=== PATIENT | male | born 1970 | race Caucasian/White ===

== ENCOUNTER 2020-11-07 09:47 | Emergency (ER) | payer OTHER, SELFPAY ==
[2020-11-07 10:04] VITALS: BP 145/87; PULSE 70; RESP 12; TEMP 37; O2SAT 99
--- NOTE | 2020-11-07 10:20 | ED.EYEPROB ---
HPI - Eye Problem General Chief complaint: Eye Problems Stated complaint: eye irritation Time Seen by Provider: 11/07/20 10:15 Source: patient and RN notes reviewed Mode of arrival: ambulatory Limitations: no limitations History of Present Illness HPI Narrative: 50-year-old male presents to the emergency room with left eye irritation and swelling that started when he woke up this morning. Patient is a contact lens wear. States he took it out last night his eyes were fine. Denies any blurry vision or change in vision. Denies any trauma to the eye. No drainage noted. Related Data Home Medications Medication Instructions Recorded Confirmed atorvastatin 11/07/20 Allergies Allergy/AdvReac Type Severity Reaction Status Date / Time No Known Allergies Allergy Verified 11/07/20 10:00 Review of Systems Review of Systems: Narrative: CONSTITUTIONAL: Denies fever, chills, or sweats. EYES: Denies visual changes, redness, or discharge. Left upper eyelid swelling ENT: Denies rhinorrhea, congestion, sore throat, or otalgia. CARDIOVASCULAR: Denies chest pain, palpitations, or edema. RESPIRATORY: Denies cough or dyspnea. SKIN: Denies rash or itching. MUSCULOSKELETAL: Denies back pain, joint pain, or myalgia. NEUROLOGIC: Denies headache, numbness, or weakness. PSYCHIATRIC: Denies anxiety or depression. All other systems reviewed are negative, except as documented in HPI. PMFSH Social History Social History Smoking status: Never smoker Comments At the time of my signature, I reviewed and agree with the nursing past medical, surgical, social, and family history. There is no relevant family history pertinent to the patient complaint. Exam Narrative: Exam Narrative: GENERAL: This is a well-nourished, well-developed patient, in no apparent distress. HEAD: normocephalic, atraumatic. EYES: PERRL. Sclera clear/white. Vision is grossly intact. Injection with increased redness noted to the left conjunctive a with swelling of the upper eyelid. Eyelid inverted no foreign body or stye noted EARS: External ears normal, auditory canals clear and without drainage, TMs normal without perforation. Hearing grossly intact. NOSE: External nose normal NECK: Neck supple, non-tender without lymphadenopathy, masses or thyromegaly. CARDIOVASCULAR: Regular rate and rhythm without murmurs, gallops, or rubs. RESPIRATORY: Clear to auscultation. Breath sounds equal bilaterally. No wheezes, rales, or rhonchi. NEURO: awake, alert, and oriented to person, place and time. There were no obvious focal neurologic abnormalities. EXTREMITIES: No joint tenderness, effusion, or edema noted. BACK: Nontender without deformity. Course Vital Signs Vital signs: Vital Signs Temperature 98.6 F 11/07/20 10:04 Pulse Rate 70 11/07/20 10:04 Respiratory Rate 12 11/07/20 10:04 Blood Pressure 145/87 H 11/07/20 10:04 Pulse Oximetry 99 11/07/20 10:04 Temperature 98.6 F 11/07/20 10:04 Pulse Rate 70 11/07/20 10:04 Respiratory Rate 12 11/07/20 10:04 Blood Pressure 145/87 H 11/07/20 10:04 Pulse Oximetry 99 11/07/20 10:04 reviewed MDM - Eye Problem Differential Diagnosis Differential diagnosis: Likely corneal abrasion and conjunctivitis Critical Care Time Critical Care Time Critical Care Time: No Discharge Plan Discharge Clinical Impression: Bacterial conjunctivitis Patient Disposition: Home, Self-Care Condition: Stable Instructions: Antibiotic Form, Conjunctivitis (ED) Additional Instructions: Do not wear contact lenses for 5 days If symptoms get worse follow-up with your eye doctor Apply cool compresses as needed Patient Language: Vincentian Prescriptions: New ciprofloxacin HCl 0.3 % drops See Rx Instructions .ROUTE .COMPLEX Qty: 2.5 RF: 0 No Action atorvastatin 20 mg tablet RF: 0 Follow-up/Referrals: Erna,Tino Manley MD [Primary Care Pr
== END 2020-11-07 13:11 | disposition home or self-care (01) ==
PROVIDERS: Emergency Provider Nurse Practitioner; PCP Internal Medicine
DX: H10.9 Unspecified conjunctivitis (principal); E78.00 Pure hypercholesterolemia, unspecified
CPT/HCPCS: 99203; G0463

== ENCOUNTER 2021-11-24 00:15 | Day surgery (SDC) | payer OTHER, SELFPAY ==
[2021-11-12 10:42] VITALS: BMI 22.8
[2021-11-24 06:28] VITALS: BP 124/83; PULSE 74; RESP 18; TEMP 36.8; O2SAT 100
[2021-11-24] MEDS: LACTATED RINGERS 1,000 ML 150 ML IV CONT (06:36)
--- NOTE | 2021-11-24 06:49 | P.PNAN_ITS ---
Anes - Initial Pre Proc Eval Procedure: Operation Date: 11/24/21 07:30 Proposed Procedures p Screening Colonoscopy - River Vo MD Date/Time: 11/24/21 06:49 Surgeon: River Vo MD Pre Op Diagnosis: neoplasm screening Patient Data Age: 51 Gender: M Height: 1.7 m Weight: 68.9 kg Last Vital Signs Temp 36.8 C 11/24/21 06:28 Pulse 74 11/24/21 06:28 Resp 18 11/24/21 06:28 BP 124/83 11/24/21 06:28 Pulse Ox 100 11/24/21 06:28 Allergies Allergy/AdvReac Type Severity Reaction Status Date / Time No Known Allergies Allergy Verified 11/24/21 06:27 Home Medications Medication Instructions Recorded Confirmed Type finasteride 1 mg tablet 1 mg PO DAILY 08/29/21 11/12/21 History atorvastatin 20 mg tablet 20 mg PO DAILY #90 tablet 09/08/21 11/12/21 Rx cetirizine [Zyrtec] 10 mg PO DAILY PRN 11/12/21 11/12/21 History Patient hx anesthesia problems: none Family hx anesthesia problems: none Results Review: All pre-operative results and documents have been reviewed as part of the pre-operative evaluation. 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 Informed Consent: The patient's anesthetic plan and its attendant risks and benefits were discussed with the patient/family/POA. Questions were solicited and answers provided to the satisfaction of the patient/family/POA.
--- NOTE | 2021-11-24 07:13 | PM.HPGS ---
History of Present Illness History of Present Illness Consent: Risks, benefits, and alternatives have been discussed and questions answered. Patient agrees to proceed with procedure. Chief complaint: neoplasm screening Narrative: Kirby Gillespie is a 51 year old male here for first screening colonoscopy Review of Systems Constitutional: Constitutional: Denies headache(s) and Denies weakness Eyes: Eyes: Denies blurry vision ENT: Reports Normal hearing present, Denies headache(s) and Denies neck pain Cardiovascular: Cardiovascular: Denies chest pain and Denies dyspnea Respiratory: Respiratory: Denies dyspnea Gastrointestinal: Gastrointestinal: Reports no additional gastrointestinal complaints Genitourinary: Genitourinary: Denies dysuria Musculoskeletal: Musculoskeletal: Denies neck pain Integumentary/Breasts: Skin/Breast: Denies dry skin Neurologic: Reports Normal hearing present, Denies headache(s) and Denies weakness Psychiatric: Psychiatric: Denies anxiety Endocrine: Endocrine: Denies change in body appearance Hematologic/Lymphatic: Hematologic/Lymphatic: Denies easy bleeding Allergic/Immunologic: Allergic/Immunologic: Denies urticaria PMF Past Medical History Medical History (Updated 11/24/21 @ 07:14 by River Vo MD) Colon cancer screening Hyperlipidemia Family History Family History Mother Diabetes mellitus Sibling Diabetes mellitus Hypertension Grandparent Diabetes mellitus Social History Social History Smoking status: Former smoker Tobacco type: cigarettes Alcohol intake: current Drinks per week: 5 Alcohol use details: Beer Substance use: current Substance use type: marijuana Living arrangements: with family 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 Gender identity (if verbalized by the patient): Male Spiritual care concerns: No Meds Home Medications and Allergies Home Medications Medication Instructions Recorded Confirmed Type finasteride 1 mg tablet 1 mg PO DAILY 08/29/21 11/12/21 History atorvastatin 20 mg tablet 20 mg PO DAILY #90 tablet 09/08/21 11/12/21 Rx cetirizine [Zyrtec] 10 mg PO DAILY PRN 11/12/21 11/12/21 History Allergies Allergy/AdvReac Type Severity Reaction Status Date / Time No Known Allergies Allergy Verified 11/24/21 06:27 Vital Signs Vital Signs - 24 hr 11/24/21 06:28 Temperature 98.2 F Pulse Rate 74 Respiratory Rate 18 Blood Pressure 124/83 Pulse Oximetry 100 Exam Const: General: comfortable and no acute distress HENMT: General nose exam: Normal nares present Eyes: General: appearance normal, both eyes and all related structures Neck: Neck: no JVD Resp: Auscultation: clear to auscultation bilaterally Cardio: Rate: regular rate Rhythm: regular rhythm GI: Inspection: non-distended GI Palp: Yes Soft to palpation Skin: General skin exam: normal color Neuro: General: gait normal Speech: normal speech Extrem: General: normal to inspection Psych: Mental Status: mental status grossly normal Assessment and Plan Assessment and plan (1) Colon cancer screening: Code(s): Z12.11 - Encounter for screening for malignant neoplasm of colon Status: Acute Assessment and Plan: colonoscopy
[2021-11-24 07:45] VITALS: BP 113/76; PULSE 75; RESP 17; O2SAT 98
[2021-11-24 07:55] VITALS: BP 114/81; PULSE 66; RESP 20; O2SAT 100
[2021-11-24 08:05] VITALS: BP 128/90; PULSE 58; RESP 17; O2SAT 100
== END 2021-11-24 08:20 | disposition home or self-care (01) ==
PROVIDERS: PCP Family Medicine; Visit Provider Internal Medicine Gastroenterology
PROC: 0DJD8ZZ Inspection of Lower Intestinal Tract, Via Natural or Artificial Opening Endoscopic (ICD-10-PCS; CPT 45378; principal; 2021-11-24 07:30)
DX: Z12.11 Encounter for screening for malignant neoplasm of colon (principal); D12.3 Benign neoplasm of transverse colon; D12.4 Benign neoplasm of descending colon; K63.5 Polyp of colon; K57.30 Diverticulosis of large intestine without perforation or abscess without bleeding; K64.8 Other hemorrhoids; E78.5 Hyperlipidemia, unspecified; Z87.891 Personal history of nicotine dependence; F12.90 Cannabis use, unspecified, uncomplicated
CPT/HCPCS: 45385; 88305; J2704; J7120

== ENCOUNTER 2023-12-18 10:02 | Emergency (ER) | payer OTHER, SELFPAY ==
--- NOTE | ~2023-12-18 | XR_ITS ---
EXAMINATION: XR clavicle RT DATE: 12/18/2023 10:18 INDICATION: Right clavicle pain. Fall. TECHNIQUE: 2 views of right clavicle were obtained. COMPARISON: None. FINDINGS: There is a comminuted fracture involving the middle third of right clavicle. The main dista l fracture fragment demonstrates 2 shaft widths inferior displacement. Coracoclavicular interval is n ormal. Joint spaces are normal. IMPRESSION: 1. Comminuted fracture involving the middle third of right clavicle. Reviewed, dictated and finalized at location A.
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
[2023-12-18 10:10] VITALS: BP 143/74; PULSE 84; RESP 16; TEMP 37; O2SAT 98
[2023-12-18 10:13] VITALS: BP 143/74; PULSE 84; RESP 16; TEMP 37; O2SAT 98
== END 2023-12-18 10:49 | disposition home or self-care (01) ==
PROVIDERS: Emergency Provider Nurse Practitioner Family; PCP Family Medicine
DX: S42.021A Displaced fracture of shaft of right clavicle, initial encounter for closed fracture (principal); V18.4XXA Pedal cycle driver injured in noncollision transport accident in traffic accident, initial encounter; E78.5 Hyperlipidemia, unspecified; Z87.891 Personal history of nicotine dependence; F12.90 Cannabis use, unspecified, uncomplicated
CPT/HCPCS: 73000; 99213; A4565; G0463

== ENCOUNTER 2023-12-18 17:02 | Emergency (ER) | payer OTHER, SELFPAY ==
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
[2023-12-18 17:04] VITALS: BP 140/72; PULSE 86; RESP 18; TEMP 36.6; O2SAT 100
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
[2023-12-18] MEDS: LIDOCAINE 5% PATCH 1 PATCH TRANSDERM (18:03)
[2023-12-18] MEDS: ONDANSETRON INJ 4 MG/2 ML VIAL IV PUSH (18:03)
[2023-12-18 18:04] LABS: Basophils Percent Auto 0.1 % (0.2-1.2); Hematocrit 44.6 % (42.0-52.0); Hemoglobin 14.9 g/dL (14.0-18.0); Immature Granulocyte Absolute 0.09 K/mm3 (0.00-0.031); Immature Granulocyte Percent A 0.5 % (0-0.5); Lymphocytes Absolute Auto 0.91 K/mm3 (0.9-3.2); Lymphocytes Percent Auto 4.8 % (18.3-44.2); Mean Corpuscular HGB Conc 33.4 g/dl (32-36); Mean Corpuscular Hemoglobin 30.7 pg (26-34); Mean Platelet Volume 9.7 fl (7.4-10.4); Monocytes Absolute Auto 1.6 K/mm3 (0.1-0.6); Monocytes Percent Auto 8.4 % (2.6-8.5); Neutrophils Absolute Auto 16.4 K/mm3 (1.3-6.7); Neutrophils Percent Auto 86.2 % (45.5-73.1); Platelet Count Result 356 k/mm3 (150-375); Red Blood Count 4.85 M/mm3 (4.6-6.20); Red Cell Distribution Width 12.1 % (11.5-14.5)
[2023-12-18 18:15] LABS: Estimated CRCL calculation 74 ml/min; Estimated Glomerular Filt Rate > 60
[2023-12-18 18:16] LABS: Prothrombin Time 14.2 Seconds (11.1-14.7)
[2023-12-18 18:17] LABS: Partial Thromboplastin Time 25.3 Seconds (22.3-36.8)
[2023-12-18] MEDS: IBUPROFEN IV 400 MG in SODIUM CHLORIDE 0.9% IV 100 ML 200 MG IVPB (18:22)
[2023-12-18 18:23] LABS: Alanine Aminotransferase 198 U/L (6-50); Albumin Level 5.2 g/dL (3.5-5.1); Alkaline Phosphatase 67 U/L (38-126); Anion Gap 14 mmol/L (4-12); Aspartate Amino Transferase 126 U/L (17-59); Bilirubin,Total 1.2 mg/dL (0.2-1.3); Blood Urea Nitrogen 11 mg/dL (9-20); Carbon Dioxide 22 mmol/L (22-30); Chloride 103 mmol/L (98-107); Estimated CRCL calculation 74 ml/min; Estimated Glomerular Filt Rate > 60; Glucose 196 mg/dL (65-110); Potassium 4.2 mmol/L (3.4-5.0); Sodium 139 mmol/L (137-145)
--- NOTE | 2023-12-18 18:24 | PC.NURSE ---
Pt moved from room 16 to room 1. Pt was offered a wheel chair and pt declined, insisting on walking.
--- NOTE | 2023-12-18 18:24 | PC.NURSE ---
Report given to ANITHA Del Cid
[2023-12-18] MEDS: MORPHINE SULFATE (*CRX) 4 MG/ML INJ IV PUSH ×2 (19:16→20:51)
[2023-12-18 19:22] VITALS: BP 149/72; PULSE 91; RESP 18; O2SAT 96
--- NOTE | 2023-12-18 20:07 | PC.NURSE ---
Report given to ANITHA Parker at [facility]
[2023-12-18 20:21] VITALS: BP 149/74; PULSE 70; RESP 16; O2SAT 96
--- NOTE | 2023-12-18 20:50 | PC.NURSE ---
Pt c/o increased pain. Provider made aware.
[2023-12-18 20:53] VITALS: BP 157/65; PULSE 66; RESP 15; O2SAT 97
== END 2023-12-18 21:02 | disposition short-term general hospital (02) ==
PROVIDERS: Emergency Provider Physician Assistant; PCP Family Medicine
DX: S42.021A Displaced fracture of shaft of right clavicle, initial encounter for closed fracture (principal); S22.41XA Multiple fractures of ribs, right side, initial encounter for closed fracture; S36.113A Laceration of liver, unspecified degree, initial encounter; S37.812A Contusion of adrenal gland, initial encounter; E78.5 Hyperlipidemia, unspecified; V18.0XXA Pedal cycle driver injured in noncollision transport accident in nontraffic accident, initial encounter
CPT/HCPCS: 36415; 70450; 71260; 73000; 74177; 80053; 85025; 85610; 85730; 96365; 96375; 96376; 99285; A4565; A9270; J1741; J2270; J2405; Q9967

== ENCOUNTER 2025-02-28 00:29 | Day surgery (SDC) | payer OTHER, SELFPAY ==
[2025-02-13 11:10] VITALS: BMI 23.5
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
--- OUTSIDE RECORDS SUMMARY | 2025-02-28 00:31 | XMS_ITS | Clinical Summary ---
Author Organization [facility] Address [address] [place] [address] Care Team Providers Care Glove Boarder Name Role Phone KimShandae STEVEN Primary Care Provide r Allergies No [...] cyst of knee 05/17/2017 Knee pain 05/14/2017 Medical History Medical History Date Comments Hyperlipemia Family History Medical History Relation Name Comments Autoimmune disease Brother Diabetes Maternal Grandmother Diabetes type II Mother Parkinsonism Paternal Grandfather Parkinsonism Paternal Grandmother Colon cancer Neg Hx Coronary artery disease Neg Hx Prostate cancer Neg Hx Relation Name Status Comments Brother Alive Father Alive Maternal Grandfather Maternal Grandmother Mother Alive Paternal Grandfather Paternal Grandmother Sister Alive Social History Tobacco Use Types Packs/Day Years [...] on file 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 Gender Identity Male 11/08/2020 10:34 AM CDT Sexual Orientation Straight 11/08/2020 10 :34 AM CDT Obstetrics History Last Filed Vital Signs Vital Sign Reading [...] 02/29/2024 5:05 PM CDT Plan of Treatment Health Maintenance Due Date Last Done Comments Colon Cancer Screening-Colonoscopy 1970 Depression Screening 1970 Hepatitis C Screening 1970 Prostate Cancer Screening-PSA 1969 DTaP/Tdap/Td Vaccine (1 - Tdap) 1980 Hepatitis B Screening 11/07/1987 Regular Well Visit/Exam 18-64 11/07/1987 Zoster Vaccine (1 of 2) 11/07/2019 Covid-19 Vaccine ( season) 2024 06/05/2022, 02/11/2022, 07/15/2021, Additional history exists Influenza Vaccine (#1) 2025 , 05/16/2021, 04/29/2020 Pneumococcal vaccine <65 Aged Out No longer eligible based on patient's age to complete this topic Insurance [employer] [employer] Member Subscriber Plan / Payer (Ef fective 2021-Present) Name:Kirby Gillespie Relation to Subscriber:Self Name:Kirby Gillespie Payer ID:[id number] (NAIC) Type:[facility] H[facility]/PPO Address: [place] [id number] Advance Directives For more information, please contact: [phone] * Full Code (Latest Code Status on File) Date Activated Date Inactivated Comments 12/19/2023 6:17 PM 12/20/2023 7:58 PM Care Teams Glove Boarder Relationship Specialty Start Date End Date Shanda Kim DNP [address] [address] PCP - General Nurse Practitioner 11/08/20
[2025-02-28 10:49] VITALS: BP 135/83; PULSE 71; RESP 18; TEMP 36.5; O2SAT 100; BMI 23.3
[2025-02-28] MEDS: LACTATED RINGERS 1,000 ML 150 ML IV CONT (10:57)
--- NOTE | 2025-02-28 11:00 | P.PNAN_ITS ---
Anes - Initial Pre Proc Eval Procedure: Operation Date: 02/28/25 11:30 Proposed Procedures p Screening Colonoscopy - River Vo MD Date/Time: 02/28/25 11:00 Surgeon: River Vo MD Pre Op Diagnosis: Personal history of colon polyps, unspecified Patient Data Age: 54 Gender: M Height: 1.7 m Weight: 67.6 kg Last Vital Signs Temp 97.7 F 02/28/25 10:49 Pulse 71 02/28/25 10:49 Resp 18 02/28/25 10:49 BP 135/83 02/28/25 10:49 Pulse Ox 100 02/28/25 10:49 O2 Del Method Room Air 02/28/25 10:49 Allergies Allergy/AdvReac Type Severity Reaction Status Date / Time No Known Allergies Allergy Verified 02/28/25 10:45 Home Medications ?Medication ?Instructions ?Recorded ?Confirmed ?Type finasteride 1 mg tablet 1 mg PO DAILY 08/29/21 02/28/25 History cetirizine 10 mg tablet (Zyrtec) 10 mg PO DAILY PRN Allergy Symptoms 11/12/21 02/13/25 History atorvastatin 20 mg tablet 20 mg PO DAILY #30 tabs 11/17/22 02/28/25 Rx Patient hx anesthesia problems: none Family hx anesthesia problems: none Results Review: All pre-operative results and documents have been reviewed as part of the pre- operative evaluation. 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 Informed Consent: The patient's anesthetic plan and its attendant risks and benefits were discussed with the patient/family/POA. Questions were solicited and answers provided to the satisfaction of the patient/family/POA.
--- NOTE | 2025-02-28 11:51 | PM.HPGS ---
History of Present Illness History of Present Illness Consent: Risks, benefits, and alternatives have been discussed and questions answered. Patient agrees to proceed with procedure. Chief complaint: Personal history of colon polyps, unspecified Narrative: Kirby Gillespie is a 54 year old male with colon polyp in 2021 Review of Systems Review of Systems: All systems reviewed & are unremarkable except as noted in HPI and below PMFSH Past Medical History Medical History (Updated 02/28/25 @ 11:53 by River Vo MD) Colon polyp Colon cancer screening Hyperlipidemia Family History Family History Mother Diabetes mellitus Sibling Diabetes mellitus Hypertension Grandparent Diabetes mellitus Social History Social History Years smoked: 15 Smoking status: Former smoker Tobacco type: cigarettes Alcohol intake: current Drinks per week: 2 Alcohol use details: Beer Substance use: never Substance use type: does not use Living arrangements: with family Occupation/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: 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 Gender identity (if verbalized by the patient): Male Spiritual care concerns: No Meds Home Medications and Allergies Home Medications ?Medication ?Instructions ?Recorded ?Confirmed ?Type finasteride 1 mg tablet 1 mg PO DAILY 08/29/21 02/28/25 History cetirizine 10 mg tablet (Zyrtec) 10 mg PO DAILY PRN Allergy Symptoms 11/12/21 02/13/25 History atorvastatin 20 mg tablet 20 mg PO DAILY #30 tabs 11/17/22 02/28/25 Rx Allergies Allergy/AdvReac Type Severity Reaction Status Date / Time No Known Allergies Allergy Verified 02/28/25 10:45 Vital Signs Vital Signs - 24 hr 02/28/25 10:49 Temperature 97.7 F Pulse Rate 71 Respiratory Rate 18 Blood Pressure 135/83 Pulse Oximetry 100 Oxygen Delivery Room Air Exam Const: General: comfortable and no acute distress HENMT: Face/Nose/Sinus: Normal nares present Eyes: General: appearance normal, both eyes and all related structures Neck: Neck: no JVD Resp: Auscultation: clear to auscultation bilaterally Cardio: Rate: regular rate Rhythm: regular rhythm GI: Inspection: non-distended GI Palp: Yes Soft to palpation Skin: General skin exam: normal color Neuro: Speech: normal speech Extrem: General: normal to inspection Psych: Mental Status: mental status grossly normal Assessment and Plan Assessment and plan (1) Colon polyp: Code(s): K63.5 - Polyp of colon Status: Acute Assessment and Plan: colonoscopy
--- NOTE | 2025-02-28 12:08 | S_PTH ---
PATIENT: Kirby Gillespie LOC: [facility]#:[id number] AGE/SX: 54/M ROOM: RE02/28/[address]: River Vo MD : 1970 BED: DIS: 02/28/2025 SPEC #: [id number] RECD: 02/28/25 13:28 STATUS: NICOLE REJalen #: [id number] MOHIT: 02/28/25 12:[address]: River Vo DEPT: [facility] Surgical RECD BY: Myrtle Florez Tissues: A - Colon Polypectomy Procedures: Hematoxylin and Eosin Stain Gross and Microscopic Level 4
[2025-02-28 12:11] VITALS: BP 123/78; PULSE 80; RESP 18; O2SAT 100
[2025-02-28 12:21] VITALS: BP 115/75; PULSE 79; RESP 24; O2SAT 99
[2025-02-28 12:31] VITALS: BP 114/76; PULSE 71; RESP 20; O2SAT 100
== END 2025-02-28 12:42 | disposition home or self-care (01) ==
PROVIDERS: Referring Provider Internal Medicine Gastroenterology; Visit Provider Internal Medicine Gastroenterology
PROC: 0DJD8ZZ Inspection of Lower Intestinal Tract, Via Natural or Artificial Opening Endoscopic (ICD-10-PCS; CPT 45378; principal; 2025-02-28 11:30)
DX: Z12.11 Encounter for screening for malignant neoplasm of colon (principal); D12.3 Benign neoplasm of transverse colon; K64.8 Other hemorrhoids; E78.5 Hyperlipidemia, unspecified; Z87.891 Personal history of nicotine dependence
CPT/HCPCS: 45385; 88305; J2003; J2704; J7120